=== PATIENT | female | born 1995 | race Caucasian/White ===

== ENCOUNTER 2017-12-07 18:09 | Emergency (ER) | payer OTHER, BC ==
[2017-12-07] MEDS ORDERED: OXYCODONE-ACETAMINOPHEN 5-325 MG TABLET PO ONE (20:15)
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
[2017-12-07] MEDS ORDERED: HYDROCODONE/ACETAMINOPHEN 5-325 MG (6 TAB/ER DISP) PO PRN (22:39)
[2017-12-07 23:13] VITALS: BP 134/78
--- NOTE | 2017-12-08 07:47 | EKG REPORT ---
SEVERITY:- BORDERLINE ECG - SINUS RHYTHM BORDERLINE T ABNORMALITIES, INFERIOR LEADS : Confirmed by: Donal Avalos MD 08-Dec-2017 07:46:21
== END 2017-12-07 23:15 | disposition home or self-care (01) ==
LOC: ER 18:09
DX: S16.1XXA Strain of muscle, fascia and tendon at neck level, initial encounter (principal); S39.012A Strain of muscle, fascia and tendon of lower back, initial encounter; R07.9 Chest pain, unspecified; M54.2 Cervicalgia; R51 Headache; M54.6 Pain in thoracic spine; V87.7XXA Person injured in collision between other specified motor vehicles (traffic), initial encounter
CPT/HCPCS: 70450; 71046; 72070; 72125; 93005; 93010; 99284

== ENCOUNTER → 2018-01-27 | Outpatient (CLI) | payer BC | LOC: OD 16:10 | PROVIDERS: ATTEND Otolaryngology | DX: J30.9 Allergic rhinitis, unspecified (principal) | CPT/HCPCS: 36415; 82785; 86003 ==

== ENCOUNTER 2018-06-25 13:50 | Emergency (ER) | payer BC ==
[2018-06-25] MEDS ORDERED: ONDANSETRON HCL INJ/PF 4 MG/2 ML SDV IV ONE (14:13)
[2018-06-25] MEDS ORDERED: NORMAL SALINE 1000 ML 1,000 ML IV ONE (14:13)
[2018-06-25] MEDS ORDERED: MORPHINE SULFATE 10 MG/ML INJ IV ONE (14:13)
--- NOTE | 2018-06-25 14:13 | ER Document Report ---
ED Medical Screen (RME) - General Chief Complaint: Abdominal Pain Stated Complaint: ABDOMINAL PAIN Time Seen by Provider: 06/25/18 14:07 Notes: Patient is a 22-year-old female that presents to the emergency department for chief complaint of right lower quadrant abdominal pain. Patient states this pain started yesterday, got progressively worse, is a generalized ache in her abdomen, that got worse to the right lower quadrant over the last 24 hours. She has had associated nausea and diarrhea. She also does report having some dysuria and urinary frequency. She does not believe that she is , she is not been sexually active in some time. ROS: Unless otherwise stated in this report the patient's positive and negative responses for review of systems for constitutional, eyes, ENT, cardiovascular, respiratory, gastrointestinal, neurological, genitourinary, musculoskeletal, and integumentary systems and related systems to the presenting problem are either as stated in the HPI or were not pertinent or were negative for the symptoms and/or complaints related to the presenting medical problem. PHYSICAL EXAMINATION: Vital signs reviewed. GENERAL: Well-appearing, well-nourished and in no acute distress. HEAD: Atraumatic, normocephalic. EYES: Pupils equal round extraocular movements intact, conjunctiva are normal. ENT: Nares patent NECK: Normal range of motion CV: Heart regular rate and rhythm LUNGS: No respiratory distress Abdomen: Right lower quadrant tenderness to palpation, no rebound, guarding or rigidity Musculoskeletal: Normal range of motion NEUROLOGICAL: Normal speech PSYCH: Normal mood, normal affect. MDM: Patient seen and examined for rapid initial assessment. Vital signs reviewed. A comprehensive ED assessment and evaluation of the patient, analysis of test results and completion of the medical decision making process will be conducted by additional ED providers. *Note is created using voice recognition software and may contain spelling, syntax or grammatical errors. TRAVEL OUTSIDE OF THE [place] IN LAST 30 DAYS: No - Related Data Allergies/Adverse Reactions: No Known Allergies Allergy (Verified 06/25/18 13:52) Past Medical History Renal/ Medical History: Reports: Hx Ovarian Cysts. Denies: Hx Peritoneal Dialysis Past Surgical History: Reports: Hx Tonsillectomy - Immunizations Immunizations up to date: Yes Hx Diphtheria, Pertussis, Tetanus Vaccination: Yes Physical Exam - Vital signs Vitals: Temp Pulse Resp BP Pulse Ox 98.1 F 82 20 140/82 H 100 10/14/18 13:57 06/25/18 13:57 06/25/18 13:57 06/25/18 13:57 06/25/18 13:57 Course - Vital Signs Vital signs: Temp Pulse Resp BP Pulse Ox 98.1 F 82 20 140/82 H 100 06/25/18 13:57 06/25/18 13:57 06/25/18 13:57 06/25/18 13:57 06/25/18 13:57 Doctor's Discharge - Discharge Referrals: VERO GARY DO [Primary Care Provider] - Follow up as needed
[2018-06-25 14:51] LABS: APPEARANCE,URINE SLIGHTLY-CLOUDY; BILIRUBIN,URINE NEGATIVE (NEGATIVE); COLOR,URINE YELLOW; GLUCOSE, URINE NEGATIVE (NEGATIVE); KETONES,URINE NEGATIVE (NEGATIVE); LEUKOCYTE ESTERASE,URINE NEGATIVE (NEGATIVE); NITRITE,URINE NEGATIVE (NEGATIVE); PROTEIN,URINE NEGATIVE (NEGATIVE); URINE SPECIFIC GRAVITY 1.016; UROBILINOGEN,URINE NEGATIVE mg/dL (<2.0)
[2018-06-25 14:52] LABS: ABSOLUTE BASOPHILS # (AUTO) 0.1 10^3/uL (0.0-0.2); ABSOLUTE EOSINOPHILS # (AUTO) 0.3 10^3/uL (0.0-0.6); ABSOLUTE LYMPHOCYTES (AUTO) 3.5 10^3/uL (0.5-4.7); ABSOLUTE MONOCYTES (AUTO) 1.1 10^3/uL (0.1-1.4); ABSOLUTE NEUT (AUTO) 8.5 10^3/uL (1.7-8.2); BASOPHILS % (AUTO) 0.8 % (0-2); EOSINOPHILS % (AUTO) 2.3 % (0-6); HEMATOCRIT 43.1 % (36.0-47.0); HEMOGLOBIN 15.2 g/dL (12.0-15.5); LYMPHOCYTES % (AUTO) 25.7 % (13-45); MEAN CORPUSCULAR HEMOGLOBIN 29.9 pg (27.0-33.4); MEAN CORPUSCULAR HGB CONC 35.2 g/dL (32.0-36.0); MEAN CORPUSCULAR VOLUME 85 fl (80-97); MONOCYTES % (AUTO) 8.1 % (3-13); PLATELET COUNT 353 10^3/uL (150-450); RED BLOOD COUNT 5.07 10^6/uL (3.72-5.28); RED CELL DISTRIBUTION WIDTH 12.5 % (11.5-14.0); SEGMENTED NEUTROPHILS % (AUTO) 63.1 % (42-78); TOTAL CELLS COUNTED % (AUTO) 100 %; WHITE BLOOD COUNT 13.5 10^3/uL (4.0-10.5)
[2018-06-25 15:08] LABS: ALANINE AMINOTRANSFERASE 42 U/L (9-52); ALBUMIN 4.6 g/dL (3.5-5.0); ALKALINE PHOSPHATASE 76 U/L (38-126); ANION GAP 11 (5-19); ASPARTATE AMINO TRANSFERASE 24 U/L (14-36); BILIRUBIN,DIRECT 0.2 mg/dL (0.0-0.4); BILIRUBIN,TOTAL 0.7 mg/dL (0.2-1.3); BLOOD UREA NITROGEN 9 mg/dL (7-20); CALCIUM 10.4 mg/dL (8.4-10.2); CARBON DIOXIDE 25 mmol/L (22-30); CHLORIDE 103 mmol/L (98-107); GLUCOSE 83 mg/dL (75-110); LIPASE 52.9 U/L (23-300); POTASSIUM 4.2 mmol/L (3.6-5.0); SODIUM 139.2 mmol/L (137-145)
--- NOTE | 2018-06-25 15:47 | ER Document Report ---
ED General - General Mode of Arrival: Ambulatory Information source: Patient TRAVEL OUTSIDE OF THE [place] IN LAST 30 DAYS: No <ADEEL JONES - Last Filed: 06/25/18 15:52> <HENOK PETE - Last Filed: 06/25/18 18:13> - General Chief Complaint: Abdominal Pain Stated Complaint: ABDOMINAL PAIN Time Seen by Provider: 06/25/18 14:07 Notes: Patient is a 22 year old female presenting to the emergency department complaining of lower abdominal pain onset yesterday. Patient states the pain is located in right lower quadrant, described as a dull aching and states it has worsened throughout the night and today. She also complains of nausea and diarrhea. Patient states the pain is more intense than the pain she had with an ovarian cyst a few years ago. Patients LMP was 2017 and further states they are normally irregular but have been regular the last 2 months. (ADEEL JONES) - Related Data Allergies/Adverse Reactions: No Known Allergies Allergy (Verified 06/25/18 13:52) Past Medical History - General Information source: Patient - Social History Smoking Status: Never Smoker Frequency of alcohol use: Occasional Drug Abuse: None Family History: Arthritis, CAD, DM, Hyperlipidemia, Hypertension, Malignancy, Thyroid Disfunction Patient has suicidal ideation: No Patient has homicidal ideation: No Renal/ Medical History: Reports: Hx Ovarian Cysts Past Surgical History: Reports: Hx Tonsillectomy - Immunizations Immunizations up to date: Yes Hx Diphtheria, Pertussis, Tetanus Vaccination: Yes <ADEEL JONES - Last Filed: 06/25/18 15:52> Review of Systems - Review of Systems Constitutional: No symptoms reported EENT: No symptoms reported Cardiovascular: No symptoms reported Respiratory: No symptoms reported Gastrointestinal: See HPI, Abdominal pain, Diarrhea, Nausea Genitourinary: No symptoms reported Female Genitourinary: No symptoms reported Musculoskeletal: No symptoms reported Skin: No symptoms reported Hematologic/Lymphatic: No symptoms reported Neurological/Psychological: No symptoms reported -: Yes All other systems reviewed and negative <ADEEL JONES - Last Filed: 06/25/18 15:52> Physical Exam - General General appearance: Appears well, Alert In distress: None - HEENT Head: Normocephalic, Atraumatic Eyes: Normal Conjunctiva: Normal Extraocular movements intact: Yes Pupils: PERRL Mucous membranes: Normal Neck: Normal - Respiratory Respiratory status: No respiratory distress Chest status: Nontender Breath sounds: Normal Chest palpation: Normal - Cardiovascular Rhythm: Regular Heart sounds: Normal auscultation Murmur: No Friction rub: No Gallop: None auscultated - Abdominal Inspection: Normal Distension: No distension Bowel sounds: Normal Tenderness: Tender - Most tender to palpation to the RLQ pelvic region. Tender to palpation to the epigastric region. Palpation to the left pelvic region causes pain in the RLQ pelvic region. No guarding, rigidity or rebounding. Organomegaly: No organomegaly - Back Back: Normal - Extremities General upper extremity: Normal ROM General lower extremity: Normal ROM - Neurological Neuro grossly intact: Yes Cognition: Normal Orientation: AAOx4 Turner Coma Scale Eye Opening: Spontaneous Turner Coma Scale Verbal: Oriented Amarilis Coma Scale Motor: Obeys Commands Turner Coma Scale Total: 15 Speech: Normal - Psychological Associated symptoms: Normal affect, Normal mood - Skin Skin Temperature: Warm Skin Moisture: Dry Skin Color: Normal <RASHAUN JONESASHLEE - Last Filed: 06/25/18 15:52> - Vital signs Vitals: Temp Pulse Resp BP Pulse Ox 98.1 F 82 20 140/82 H 100 06/25/18 13:57 06/25/18 13:57 06/25/18 13:57 06/25/18 13:57 06/25/18 13:57 Course - Laboratory Result Diagrams: 06/25/18 14:21 06/25/18 14:21 <ADEEL JONES - Last Filed: 06/25/18 15:52> - Laboratory Result Diagrams: 06/25/18 14:21 06/25/18 14:21 - Diagnostic Test Radiology reviewed: Image reviewed, Reports reviewed - CT scan was unremarkable other than showing a lot of stool in the colon. Transvaginal ultrasound did not show ovarian cysts or any other abnormality. <HENOK PETE - Last Filed: 06/25/18 18:13> - Vital Signs Vital signs: Temp Pulse Resp BP Pulse Ox 98.1 F 82 20 140/82 H 100 06/25/18 13:57 06/25/18 13:57 06/25/18 13:57 06/25/18 13:57 06/25/18 13:57 - Laboratory Laboratory results interpreted by me: 06/25/18 06/25/18 14:21 14:21 WBC 13.5 H Absolute Neutrophils 8.5 H Calcium 10.4 H Discharge <ADEEL JONES - Last Filed: 06/25/18 15:52> <HENOK PETE - Last Filed: 06/25/18 18:13> - Discharge Clinical Impression: Abdominal pain Qualifiers: Abdominal location: right lower quadrant Qualified Code(s): R10.31 - Right lower quadrant pain Condition: Stable Disposition: HOME, SELF-CARE Additional Instructions: Abdominal Pain: There are many causes of abdominal pain. Pain can mean a serious problem requiring surgery (such as appendicitis). It can also be an innocent problem that goes away on its own (such as a viral infection). Often, time must pass to determine the cause of pain. The physician does not feel that hospitalization is necessary, at present. Things may change within the next 24 hours. Call the doctor or come back for re- examination if any problems occur, such as: (1) Pain that becomes more severe, steady, or becomes concentrated in one specific area. Also, pain that is more severe with movement or coughing. (2) Vomiting that persists or becomes more frequent. (3) Blood in the vomitus, urine, or bowel movements. Blood in the stool may have a tarry or black appearance. (4) Shaking chills or fever greater than 100 degrees F. (5) The abdomen becomes more distended or swollen. (6) Bowel movements cease. (7) Failure to improve as expected. There was no clear explanation for your right-sided abdominal pain. The CT scan did not show any inflammatory process, but there was a lot of stool in the right colon. The ultrasound did not show any ovarian cysts or other explanation for your discomfort. Constipation is a likely reason for your right-sided abdominal pain. For now you should try drinking about a half a bottle of mag citrate, and lots of fluids. You can take Tylenol for pain. Narcotic pain medications will likely make the problem worse because of the tendency to cause constipation. You will be discharged with a bottle of mag citrate to drink at home, and some Zofran for nausea. Follow-up with your doctor tomorrow for recheck if not improving. RETURN TO THE EMERGENCY ROOM IF ANY NEW OR WORSENING SYMPTOMS. Scribe Attestation: 06/25/18 15:57 I personally performed the services described in the documentation, reviewed and edited the documentation which was dictated to the scribe in my presence, and it accurately records my words and actions. (HENOK PETE) [employer] Documentation - Scribe Written by Nichol:: Nichol Hallman, 06/25/2018 15:50 acting as scribe for :: Jerson <ADEEL JONES - Last Filed: 06/25/18 15:52>
--- NOTE | 2018-06-25 16:51 | RADIOLOGY REPORT (SQ) ---
EXAM DESCRIPTION: CT ABD/PELVIS WITH IV ONLY COMPLETED DATE/TIME: 06/25/2018 4:13 pm REASON FOR STUDY: right lower quadrant pain COMPARISON: None. TECHNIQUE: CT scan of the abdomen and pelvis performed using helical scanning technique with dynamic intravenous contrast injection. No oral contrast. Images reviewed with lung, soft tissue, and bone w indows. Reconstructed coronal and sagittal MPR images reviewed. Delayed images for evaluation of the urinary system also acquired. All images stored on PACS. All CT scanners at this facility use dose modulation, iterative reconstruction, and/or weight based d osing when appropriate to reduce radiation dose to as low as reasonably achievable (ALARA). [facility]: Dose Right [facility]: CareDose [facility]: Dose Right [facility]: Teradose 4D [facility]: Localize Direct CONTRAST TYPE AND DOSE: contrast/concentration: Isovue 350.00 mg/ml; Total Contrast Delivered: 100.0 ml; Total Saline Delivered: 72.0 ml RENAL FUNCTION: GFR > 60. RADIATION DOSE: CT Rad equipment meets quality standard of care and radiation dose reduction techniq ues were employed. CTDIvol: 15.3 - 19.2 mGy. DLP: 1815 mGy-cm.. LIMITATIONS: None. FINDINGS: LOWER CHEST: No significant findings. LIVER: Normal size. No enhancing masses. No dilated ducts. SPLEEN: Normal size. No focal lesions. PANCREAS: No masses identified. No significant calcifications. No adjacent inflammation or peripancre atic fluid collections. Pancreatic duct not dilated. GALLBLADDER: No calcified stones. No inflammatory changes to suggest cholecystitis. ADRENAL GLANDS: No significant masses. RIGHT KIDNEY AND URETER: No cysts identified. No solid masses identified. No calcified stones. No hyd ronephrosis or hydroureter. LEFT KIDNEY AND URETER: No cysts identified. No solid masses identified. No calcified stones. No hydr onephrosis or hydroureter. AORTA AND VESSELS: No aneurysm. No dissection. Renal arteries, SMA, celiac without significant stenos is. RETROPERITONEUM: No bulky retroperitoneal adenopathy. BOWEL AND PERITONEAL CAVITY: No obstruction or inflammatory changes. No free fluid. APPENDIX: Normal. PELVIS: No mass. No free fluid. Unremarkable bladder. ABDOMINAL WALL: No masses. No hernias. BONES: No acute findings. OTHER: No other significant finding. IMPRESSION: NO ACUTE FINDINGS IN THE ABDOMEN OR PELVIS ON CT SCAN WITH IV CONTRAST. TECHNICAL DOCUMENTATION: JOB ID: [id number] [id number] Quality ID # [id number]: Final reports with documentation of one or more dose reduction techniques (e.g., Au tomated exposure control, adjustment of the mA and/or kV according to patient size, use of iterative reconstruction technique) 2010 [employer]- All Rights Reserved Reading location - IP/workstation name: [email or web address]
[2018-06-25] MEDS ORDERED: KETOROLAC TROMETHAMINE INJ/PF 30 MG/1 ML SDV IV ONE (16:55)
--- NOTE | 2018-06-25 17:37 | RADIOLOGY REPORT (SQ) ---
EXAM DESCRIPTION: U/S NON-OB PELVIS TV W/O DOP COMPLETED DATE/TIME: 06/25/2018 5:28 pm REASON FOR STUDY: Right pelvic pain, history of ovarian cysts COMPARISON: None. TECHNIQUE: Dynamic and static grayscale images acquired of the pelvis via transvaginal approach and recorded on PACS. Additional selected color Doppler and spectral images recorded. LIMITATIONS: None. FINDINGS: UTERUS: Contour normal. No mass. ENDOMETRIAL STRIPE: No focal or generalized thickening. No masses. CERVIX: No nabothian cysts. RIGHT OVARY AND DOPPLER: Normal size. No worrisome masses. Normal arterial vascular flow without evid ence for torsion. LEFT OVARY AND DOPPLER: Normal size. No worrisome masses. Normal arterial vascular flow without evide nce for torsion. FREE FLUID: Trace amount. OTHER: No other significant finding. MEASUREMENTS: UTERUS: 9.3 x 5.1 x 5.1 cm ENDOMETRIAL STRIPE: 13 mm RIGHT OVARY: 3.9 x 1.9 x 3.4 cm LEFT OVARY: 3.5 x 3.0 x 2.5 cm IMPRESSION: NORMAL TRANSVAGINAL PELVIC ULTRASOUND. TECHNICAL DOCUMENTATION: JOB ID: [id number]- All Rights Reserved Rev-01/27 Reading location - IP/workstation name: [email or web address]
[2018-06-25] MEDS ORDERED: MAGNESIUM CITRATE 296 ML BOTTLE PO ONE (18:13)
[2018-06-25] MEDS ORDERED: ONDANSETRON ODT 4 MG TAB (6 TAB/ER DISP) PO PRN (18:13)
[2018-06-25 18:27] VITALS: BP 121/74
== END 2018-06-25 18:26 | disposition home or self-care (01) ==
LOC: ER 13:50
DX: R10.31 Right lower quadrant pain (principal); R11.0 Nausea; R19.7 Diarrhea, unspecified
CPT/HCPCS: 99284; 96361; 96374; 96375; 36415; 83690; 84703; 85025; 80053; 81001; 76830; 74177; J3490; J2270; J2405; J7030

== ENCOUNTER 2019-10-04 11:53 | Emergency (ER) | payer BC ==
[2019-10-04] MEDS ORDERED: NORMAL SALINE 1000 ML 1,000 ML IV ONE (12:25)
[2019-10-04] MEDS ORDERED: ACETAMINOPHEN 325 MG TABLET PO ONE (12:26)
--- NOTE | 2019-10-04 12:28 | ER Document Report ---
ED Medical Screen (RME) - General Chief Complaint: Headache Stated Complaint: COUGH Time Seen by Provider: 10/04/19 12:19 Mode of Arrival: Ambulatory Information source: Patient Notes: Patient presents reporting cold symptoms for the past 3 months. Patient was recently on Augmentin and finished it today. Patient reports nosebleed last night. Patient went to her doctor's office for follow-up of her symptoms and due to her headache and neck stiffness they advised her to come here for evaluation for possible meningitis. Patient denies any fever. I have greeted and performed a rapid initial assessment of this patient. A comprehensive ED assessment and evaluation of the patient, analysis of test results and completion of the medical decision making process will be conducted by additional ED providers. TRAVEL OUTSIDE OF THE [place] IN LAST 30 DAYS: No - Related Data Allergies/Adverse Reactions: No Known Allergies Allergy (Verified 06/25/18 13:52) Past Medical History - Social History Frequency of alcohol use: None Drug Abuse: None Renal/ Medical History: Reports: Hx Ovarian Cysts. Denies: Hx Peritoneal Dialysis Past Surgical History: Reports: Hx Tonsillectomy - Immunizations Immunizations up to date: Yes Hx Diphtheria, Pertussis, Tetanus Vaccination: Yes Physical Exam - Vital signs Vitals: Temp Pulse Resp BP Pulse Ox 98.1 F 106 H 16 144/81 H 98 10/04/19 12:14 10/04/19 12:14 10/04/19 12:14 10/04/19 12:14 10/04/19 12:14 - General General appearance: Appears well, Alert Notes: Patient with cervical tenderness that worsens with flexion of the neck. Course - Vital Signs Vital signs: Temp Pulse Resp BP Pulse Ox 98.1 F 106 H 16 144/81 H 98 10/04/19 12:14 10/04/19 12:14 10/04/19 12:14 10/04/19 12:14 10/04/19 12:14
--- NOTE | 2019-10-04 12:58 | RADIOLOGY REPORT (SQ) ---
EXAM DESCRIPTION: CHEST 2 VIEWS COMPLETED DATE/TIME: 10/04/2019 12:50 pm REASON FOR STUDY: cough COMPARISON: 12/07/2017. EXAM PARAMETERS: NUMBER OF VIEWS: two views TECHNIQUE: Digital Frontal and Lateral radiographic views of the chest acquired. RADIATION DOSE: NA LIMITATIONS: none FINDINGS: LUNGS AND PLEURA: No opacities, masses or pneumothorax. No pleural effusion. MEDIASTINUM AND HILAR STRUCTURES: No masses or contour abnormalities. HEART AND VASCULAR STRUCTURES: Heart normal size. No evidence for failure. BONES: No acute findings. HARDWARE: None in the chest. OTHER: No other significant finding. IMPRESSION: NO ACUTE RADIOGRAPHIC FINDING IN THE CHEST. TECHNICAL DOCUMENTATION: JOB ID: [id number] [employer]- All Rights Reserved Reading location - IP/workstation name: [email or web address]
[2019-10-04] MEDS ORDERED: METHYLPREDNISOLONE INJ 125 MG/2 ML SDV IV ONE (14:45)
[2019-10-04] MEDS ORDERED: KETOROLAC TROMETHAMINE INJ/PF 30 MG/1 ML SDV IV ONE (14:45)
[2019-10-04 14:49] LABS: ABSOLUTE BASOPHILS # (AUTO) 0.1 10^3/uL (0.0-0.2); ABSOLUTE EOSINOPHILS # (AUTO) 0.4 10^3/uL (0.0-0.6); ABSOLUTE LYMPHOCYTES (AUTO) 3.1 10^3/uL (0.5-4.7); ABSOLUTE MONOCYTES (AUTO) 0.8 10^3/uL (0.1-1.4); ABSOLUTE NEUT (AUTO) 6.2 10^3/uL (1.7-8.2); BASOPHILS % (AUTO) 0.8 % (0-2); EOSINOPHILS % (AUTO) 3.8 % (0-6); HEMATOCRIT 40.3 % (36.0-47.0); HEMOGLOBIN 14.3 g/dL (12.0-15.5); LYMPHOCYTES % (AUTO) 29.2 % (13-45); MEAN CORPUSCULAR HEMOGLOBIN 29.4 pg (27.0-33.4); MEAN CORPUSCULAR HGB CONC 35.5 g/dL (32.0-36.0); MEAN CORPUSCULAR VOLUME 83 fl (80-97); MONOCYTES % (AUTO) 7.6 % (3-13); PLATELET COUNT 333 10^3/uL (150-450); RED BLOOD COUNT 4.86 10^6/uL (3.72-5.28); RED CELL DISTRIBUTION WIDTH 12.6 % (11.5-14.0); SEGMENTED NEUTROPHILS % (AUTO) 58.6 % (42-78); TOTAL CELLS COUNTED % (AUTO) 100 %; WHITE BLOOD COUNT 10.6 10^3/uL (4.0-10.5)
--- NOTE | 2019-10-04 14:52 | ER Document Report ---
ED General - General Chief Complaint: Headache Stated Complaint: COUGH Time Seen by Provider: 10/04/19 12:19 Primary Care Provider: MONALISA LOOMIS NP [Primary Care Provider] - Follow up as needed Mode of Arrival: Ambulatory Information source: Patient, [facility] Records Notes: This 24-year-old female patient comes emergency room complaining of URI symptoms for the past 3 months. She states she is been sick with sinus infection type symptoms since July 2019. She reports she has nasal congestion and nasal drainage which at this time is clear, occasionally has some blood in it. She reports she has a productive cough at nighttime which is yellow. She reports she had a nosebleed last night. She also complains of a headache. She was prescribed a 10-day course of Augmentin on 09/19/2019 and states it is not helped at all. There is no history of fever, but she states that she sometimes wakes up soaking wet and has to change her night clothes. She did go to see her primary care provider today, who sent her to the emergency room to rule out meningitis due to headache and neck pain. Patient states she has had meningitis in the past, it was not as severe as this. TRAVEL OUTSIDE OF THE [place] IN LAST 30 DAYS: No - Related Data Allergies/Adverse Reactions: No Known Allergies Allergy (Verified 06/25/18 13:52) Past Medical History - General Information source: Patient, [facility] Records - Social History Smoking Status: Never Smoker Cigarette use (# per day): No Chew tobacco use (# tins/day): No Smoking Education Provided: No Frequency of alcohol use: None Drug Abuse: None Lives with: Parents Family History: Arthritis, CAD, DM, Hyperlipidemia, Hypertension, Malignancy, Thyroid Disfunction Patient has suicidal ideation: No Patient has homicidal ideation: No Renal/ Medical History: Reports: Hx Ovarian Cysts Psychiatric Medical History: Reports: Hx Depression Past Surgical History: Reports: Hx Tonsillectomy - Immunizations Immunizations up to date: Yes Hx Diphtheria, Pertussis, Tetanus Vaccination: Yes Review of Systems - Review of Systems Constitutional: See HPI EENT: Nose congestion, Nose discharge, Sinus pressure Cardiovascular: No symptoms reported Respiratory: See HPI, Cough, Sputum Gastrointestinal: No symptoms reported Genitourinary: No symptoms reported Female Genitourinary: No symptoms reported Musculoskeletal: See HPI, Neck pain Skin: No symptoms reported Hematologic/Lymphatic: No symptoms reported Neurological/Psychological: No symptoms reported Physical Exam - Vital signs Vitals: Temp Pulse Resp BP Pulse Ox 98.1 F 106 H 16 144/81 H 98 10/04/19 12:14 10/04/19 12:14 10/04/19 12:14 10/04/19 12:14 10/04/19 12:14 Interpretation: Hypertensive - General General appearance: Appears well, Alert In distress: None - HEENT Head: Normocephalic, Atraumatic Eyes: Normal Pupils: PERRL External canal: Normal Tympanic membrane: Normal Nasal: Other - Patient does have some nasal and sinus congestion. Mouth/Lips: Normal Pharynx: Normal Neck: Supple, Other - Patient is able to flex and extend her neck without difficulty. There is tenderness to the posterior cervical muscles and trapezius muscles. - Respiratory Respiratory status: No respiratory distress Breath sounds: Rhonchi - Some faint rhonchi with forced cough, otherwise lungs are clear. Chest palpation: Normal. No: Tender - Cardiovascular Rhythm: Regular Heart sounds: Normal auscultation Murmur: No - Abdominal Inspection: Obese Bowel sounds: Normal Tenderness: Nontender - Back Back: Normal - Extremities General upper extremity: Normal inspection General lower extremity: Normal inspection - Neurological Neuro grossly intact: Yes - Psychological Associated symptoms: Normal affect, Normal mood - Skin Skin Temperature: Warm Skin Moisture: Dry Skin Color: Normal Course - Vital Signs Vital signs: Temp Pulse Resp BP Pulse Ox 98.1 F 106 H 16 144/81 H 98 10/04/19 12:14 10/04/19 12:14 10/04/19 12:14 10/04/19 12:14 10/04/19 12:14 - Laboratory Result Diagrams: 10/04/19 14:24 10/04/19 14:24 Laboratory results interpreted by me: 10/04/19 10/04/19 14:24 15:53 WBC 10.6 H Urine Blood LARGE H - Diagnostic Test Radiology reviewed: Image reviewed, Reports reviewed - CXR--no acute radiographic findings in the chest. Discharge - Discharge Clinical Impression: Viral upper respiratory tract infection with cough Tension type headache Qualifiers: Headache chronicity pattern: unspecified pattern Intractability: not intractable Qualified Code(s): G44.209 - Tension-type headache, unspecified, not intractable Condition: Stable Disposition: HOME, SELF-CARE Additional Instructions: Upper Respiratory Illness You have a viral infection of the respiratory passages -- a "cold." This common infection causes nasal congestion, drainage, and often sore throat and cough. It is caused by a virus and is highly contagious. The disease usually lasts a week or more, though the worst symptoms are usually over in 3 or 4 days. There is no "cure" for the viral infection -- it must run its course. If there is a complication, such as bacterial infection in the nose, sinuses, middle ear, or bronchial tubes, antibiotics may be required, but antibiotics won't affect the virus. If you smoke, you should STOP!! Drink plenty of fluids. A humidifier may help. An expectorant medication or decongestant may make you more comfortable. Use acetaminophen or ibuprofen for fever or aches. See the doctor if fever persists over two or three days, if there is any significant worsening of your symptoms, or if you simply fail to improve as expected. Tension Headache Your problem has been diagnosed as muscle tension headache. This very common type of headache occurs because of tightness in the muscles of the head and neck. The headache may last hours or days. The treatment of uncomplicated tension headaches is rest and pain medication. Often, the newer antiinflammatory pain medications are prescribed, as these also decrease the irritability of the painful tissues. Muscle rela xers, cold packs, or warm packs are sometimes helpful. Anti-anxiety medication or narcotics are sometimes needed temporarily, but are best avoided in the long run. Your doctor has evaluated your headache problem, and finds no evidence of a serious health problem as a cause for the headache. If your headache becomes more severe, or if new symptoms develop (such as fever, stiff neck, vomiting, or decreasing alertness) you should be re-examined by the physician. Take the medications as prescribed for inflammation, cough and muscle tension in your neck and scalp muscles. Drink plenty of fluids and get plenty of rest. Take Tylenol and ibuprofen or Aleve for the headache pain. Try Robitussin-DM or Delsym DM to help suppress your cough. Follow-up with your primary care provider if not improving. RETURN TO THE EMERGENCY ROOM IF ANY NEW OR WORSENING SYMPTOMS. Prescriptions: Prednisone [Deltasone 10 mg Tablet] 10 mg PO ASDIR PRN #21 tablet PRN Reason: Cyclobenzaprine HCl [Flexeril 5 mg Tablet] 5 mg PO TID PRN #15 tablet PRN Reason: Benzonatate [Tessalon Perles 100 mg Capsule] 100 mg PO ASDIR PRN #30 capsule PRN Reason: Referrals: MONALISA LOOMIS, [facility] [employer]ELOPER [Primary Care Provider] - Follow up as needed
[2019-10-04 15:18] LABS: ANION GAP 11 (5-19); BLOOD UREA NITROGEN 11 mg/dL (7-20); CALCIUM 9.8 mg/dL (8.4-10.2); CARBON DIOXIDE 26 mmol/L (22-30); CHLORIDE 103 mmol/L (98-107); GLUCOSE 88 mg/dL (75-110)
[2019-10-04 16:09] LABS: APPEARANCE,URINE SLIGHTLY-CLOUDY; BILIRUBIN,URINE NEGATIVE (NEGATIVE); COLOR,URINE YELLOW; GLUCOSE, URINE NEGATIVE (NEGATIVE); KETONES,URINE NEGATIVE (NEGATIVE); LEUKOCYTE ESTERASE,URINE NEGATIVE (NEGATIVE); NITRITE,URINE NEGATIVE (NEGATIVE); PROTEIN,URINE NEGATIVE (NEGATIVE); URINE SPECIFIC GRAVITY 1.008; UROBILINOGEN,URINE NEGATIVE mg/dL (<2.0)
[2019-10-04 17:34] VITALS: BP 112/60
== END 2019-10-04 17:00 | disposition home or self-care (01) ==
LOC: ER 11:53
DX: G44.209 Tension-type headache, unspecified, not intractable (principal); J06.9 Acute upper respiratory infection, unspecified; B97.89 Other viral agents as the cause of diseases classified elsewhere; R09.81 Nasal congestion; R09.89 Other specified symptoms and signs involving the circulatory and respiratory systems; R05 Cough; R04.0 Epistaxis; M54.2 Cervicalgia; Z86.61 Personal history of infections of the central nervous system
CPT/HCPCS: 99283; 96361; 96374; 96375; 36415; 87040; 84703; 85025; 80048; 81001; 71046; J2930; J1885; J7030